=== PATIENT | female | born 1955 | race Caucasian/White ===

== ENCOUNTER → 2016-11-22 | Outpatient (CLI) | payer BC ==
[~2016-11-22] MED LIST: ASP325TEC PO; SIMV20TA3 PO; SITA100T PO; tylenol pm PO
--- NOTE | 2016-11-23 10:59 | Diagnostic Imaging Report ---
EXAMINATION: Bilateral screening mammogram 2D views with tomosynthesis. The current study was also evaluated with a Computer Aided Detection (CAD) system. INDICATION: Screening. PERSONAL HISTORY: No current complaints stated on the questionnaire. COMPARISON: 09/24/2015. FINDINGS: The breasts are composed of scattered fibroglandular densities. Allowing for technique and positional differences, no suspicious change is seen. IMPRESSION: No significant change. ACR BI-RADS Category 2: Benign findings. Result letter will be mailed to the patient. Note: At least 10% of breast cancer is not imaged by mammography. Dictated by: Dictated on workstation # [id number]
== END ==
LOC: RAD 09:59
PROVIDERS: ATTEND Nurse Practitioner Family
DX: Z12.31 Encounter for screening mammogram for malignant neoplasm of breast (principal)
CPT/HCPCS: 77067

== ENCOUNTER → 2018-03-28 | Outpatient (CLI) | payer BC ==
--- NOTE | 2018-03-28 15:50 | Diagnostic Imaging Report ---
INDICATION: Routine screening. COMPARISON: 11/22/2016 and 10/21/2015. TECHNIQUE: 2D and 3D bilateral screening mammography was performed with CAD. FINDINGS: Scattered fibroglandular densities are identified bilaterally. The parenchymal pattern is stable. No mass or malignant appearing microcalcifications are seen. The axillae are unremarkable. IMPRESSION: No mammographic features suspicious for malignancy are identified. ACR BI-RADS Category 1: Negative. Result letter will be mailed to the patient. Note: At least 10% of breast cancer is not imaged by mammography. Dictated by: Dictated on workstation # [id number]
== END ==
LOC: RAD 09:45
PROVIDERS: ATTEND Nurse Practitioner Family
DX: Z12.31 Encounter for screening mammogram for malignant neoplasm of breast (principal)
CPT/HCPCS: 77067

== ENCOUNTER → 2018-06-26 | Outpatient (CLI) | payer BC | LOC: CARD 09:44 | PROVIDERS: ATTEND Internal Medicine Cardiovascular Disease | DX: R07.89 Other chest pain (principal); I10 Essential (primary) hypertension; E78.5 Hyperlipidemia, unspecified; R06.02 Shortness of breath | CPT/HCPCS: 93306 ==

== ENCOUNTER 2018-08-07 23:59 | Observation (INO) | payer BC, MEDICARE ==
[~2018-08-07] VITALS: Ht 170.2 cm; Wt 79.8 kg
[2018-08-08] VITALS (20 sets, daily range): BP systolic 90–147; BP diastolic 51–69
[2018-08-08] MEDS ORDERED: ASPIRIN 81 MG CHEW (CHILDREN'S ASA) PO ONE (00:15)
[2018-08-08] MEDS ORDERED: ONDANSETRON 4 MG/2 ML (SDV) Z0FRAN ONE ×2 (00:25→11:53)
[2018-08-08] MEDS ORDERED: ONDANSETRON 4 MG/2 ML (SDV) Z0FRAN IVP ONE ×2 (00:30→01:30)
[2018-08-08 00:33] LABS: BASOPHILS % (AUTO) 0 % (0-10); EOSINOPHILS # (AUTO) 0.3 10^3/uL (0.0-0.3); EOSINOPHILS % (AUTO) 2 % (0-10); HEMATOCRIT 42 % (35-52); HEMOGLOBIN 13.7 G/DL (11.5-16.0); LYMPHOCYTES # (AUTO) 3.9 X 10^3 (1.0-4.0); LYMPHOCYTES % (AUTO) 28 % (12-44); MEAN CORPUSCULAR HEMOGLOBIN 27 PG (25-34); MEAN CORPUSCULAR HGB CONC 33 G/DL (32-36); MEAN CORPUSCULAR VOLUME 82 FL (80-99); MEAN PLATELET VOLUME 9.8 FL (7.4-10.4); MONOCYTES % (AUTO) 8 % (0-12); NEUTROPHILS # (AUTO) 8.5 X 10^3 (1.8-7.8); NEUTROPHILS % (AUTO) 62 % (42-75); PLATELET COUNT 325 10^3/uL (130-400); RED CELL DISTRIBUTION WIDTH 15.2 % (10.0-14.5); WHITE BLOOD COUNT 13.7 10^3/uL (4.3-11.0)
[2018-08-08] MEDS: NITROGLYCERIN 0.4 MG SL TABS BTL 25'S SL PRN ×3 (00:35→00:42)
--- NOTE | 2018-08-08 00:35 | ED Chest Pain ---
General Stated Complaint: SHOULDER,BACK & PAIN ALL THE WAY AROUND CHEST Source: patient History of Present Illness Date Seen by Provider: Aug 08, 2018 Time Seen by Provider: 00:06 Initial Comments PT ARRIVES VIA POV FROM HOME C/O PAIN ALL ACROSS LOWER CHEST/ RIBS AND AROUND TO BACK PAIN BEGAN AROUND 1700 TONIGHT RATES PAIN 7-8/10 NOTHING WORSENS OR IMPROVES PAIN NO SHORTNESS OF BREATH NO PALPITATIONS NO SWEATS + NAUSEA, NO VOMITING NO SWELLING IN LEGS / FEET OR PAIN IN CALVES PT DID TRAVEL [address] TODAY IN A VEHICLE HAS HAD THIS SAME PAIN MANY TIMES IN THE PAST, NEVER THIS BAD HAS HAD STRESS TESTS IN THE PAST, LAST ONE IN 2016--NORMAL PT SEES DR LEVINE ON A REGULAR BASIS FOR HTN AND HYPERLIPIDEMIA, WITH HISTORY OF DIABETES WELL. STATES SHE HAS NEVER BEEN TOLD THAT SHE HAS ANYTHING WRONG WITH HER HEART. LAST VISIT WAS 1 WEEK AGO NO CHANGES IN MEDICATIONS PCP: DR. BANDA PICKUP DRIVER: DR. LEVINE Allergies and Home Medications Allergies Coded Allergies: No Known Drug Allergies (Unverified , 08/03/11) Home Medications Aspirin 325 Mg Tabec, 325 MG PO DAILY, (Reported) Simvastatin 20 Mg Tablet, 20 MG PO DAILY, (Reported) Sitagliptin Phosphate 100 Mg Tablet, 1 EACH PO DAILY, (Reported) [tylenol pm] , PO HS, (Reported) Patient Home Medication List Home Medication List Reviewed: Yes Review of Systems Review of Systems Constitutional: no symptoms reported; No diaphoresis, No dizziness Respiratory: No Symptoms Reported Cardiovascular: See HPI, Chest Pain; Denies Edema, Denies Lightheadedness, Denies Palpitations, Denies Syncope Gastrointestinal: See HPI; Denies Abdominal Pain; Nausea; Denies Vomiting Genitourinary: No Symptoms Reported Musculoskeletal: see HPI, back pain Skin: no symptoms reported Psychiatric/Neurological: No Symptoms Reported Endocrine: No Symptoms Reported Hematologic/Lymphatic: No Symptoms Reported Past Wobfklm-Knbkke-Dwsaez Hx Patient Social History Alcohol Use: Rarely Uses Recreational Drug Use: No Smoking Status: Never a Smoker Recent Foreign Travel: No Contact w/Someone Who Travel: No Past Medical History Surgeries: Yes (LEFT HIP REPLACEMENT; COLONOSCOPY) Joint Replacement, Orthopedic, Tubal Ligation Respiratory: No Cardiac: Yes High Cholesterol, Hypertension Neurological: No Genitourinary: No Gastrointestinal: No Musculoskeletal: Yes Arthritis Endocrine: Yes Diabetes, Non-Insulin dep HEENT: No Cancer: No Psychosocial: No Integumentary: No Blood Disorders: No Physical Exam Vital Signs Vital Signs - First Documented Capillary Refill : Height, Weight, BMI Height: '" Weight: lbs. oz. kg; BMI Method: General Appearance: No Apparent Distress, WD/WN Neck: Full Range of Motion, Normal Inspection, Non Tender, Supple; No Carotid Bruit, No JVD Respiratory: Chest Non Tender, Normal Breath Sounds, No Accessory Muscle Use, No Respiratory Distress Cardiovascular: Regular Rate, Rhythm, No Edema, No JVD, No Murmur, Normal Peripheral Pulses Gastrointestinal: Normal Bowel Sounds, No Organomegaly, No Pulsatile Mass, Non Tender, Soft Extremity: Normal Capillary Refill, Normal Inspection, Normal Range of Motion, Non Tender, No Calf Tenderness, No Pedal Edema Neurologic/Psychiatric: Alert, Oriented x3, No Motor/Sensory Deficits, Normal Mood/Affect, air intelligence specialist II-XII Norm as Tested Skin: Normal Color, Warm/Dry; No Rash Progress/Results/Core Measures Results/Orders Lab Results Laboratory Tests Test 08/08/18 00:20 Range/Units White Blood Count 13.7 H 4.3-11.0 10^3/uL Red Blood Count 5.17 4.35-5.85 10^6/uL Hemoglobin 13.7 11.5-16.0 G/DL Hematocrit 42 35-52 % Mean Corpuscular Volume 82 80-99 FL Mean Corpuscular Hemoglobin 27 25-34 PG Mean Corpuscular Hemoglobin Concent 33 32-36 G/DL Red Cell Distribution Width 15.2 H 10.0-14.5 % Platelet Count 325 130-400 10^3/uL Mean Platelet Volume 9.8 7.4-10.4 FL Neutrophils (%) (Auto) 62 42-75 % Lymphocytes (%) (Auto) 28 12-44 % Monocytes (%) (Auto) 8 0-12 % Eosinophils (%) (Auto) 2 0-10 % Basophils (%) (Auto) 0 0-10 % Neutrophils # (Auto) 8.5 H 1.8-7.8 X 10^3 Lymphocytes # (Auto) 3.9 1.0-4.0 X 10^3 Monocytes # (Auto) 1.0 0.0-1.0 X 10^3 Eosinophils # (Auto) 0.3 0.0-0.3 10^3/uL Basophils # (Auto) 0.0 0.0-0.1 10^3/uL Prothrombin Time 13.0 12.2-14.7 SEC INR Comment 0.9 0.8-1.4 Activated Partial Thromboplast Time 32 24-35 SEC Sodium Level 143 135-145 MMOL/L Potassium Level 3.9 3.6-5.0 MMOL/L Chloride Level 104 98-107 MMOL/L Carbon Dioxide Level 24 21-32 MMOL/L Anion Gap 15 H 5-14 MMOL/L Blood Urea Nitrogen 19 H 7-18 MG/DL Creatinine 0.88 0.60-1.30 MG/DL Estimat Glomerular Filtration Rate > 60 BUN/Creatinine Ratio 22 Glucose Level 138 H 70-105 MG/DL Calcium Level 10.5 H 8.5-10.1 MG/DL Corrected Calcium 8.5-10.1 MG/DL Magnesium Level 2.2 1.8-2.4 MG/DL Total Bilirubin 0.4 0.1-1.0 MG/DL Aspartate Amino Transf (AST/SGOT) 23 5-34 U/L Alanine Aminotransferase (ALT/SGPT) 39 0-55 U/L Alkaline Phosphatase 78 40-136 U/L Myoglobin 33.3 10.0-92.0 NG/ML Troponin I < 0.028 <0.028 NG/ML B-Type Natriuretic Peptide 20.1 <100.0 PG/ML Total Protein 7.8 6.4-8.2 GM/DL Albumin 4.6 H 3.2-4.5 GM/DL Amylase Level 68 25-125 U/L Lipase 36 8-78 U/L My Orders Orders - JIAN KAHN DO Cbc With Automated Diff (08/08/18 00:15) Magnesium (08/08/18 00:15) Chest 1 View, Ap/Pa Only (08/08/18 00:15) Ekg Tracing (08/08/18 00:15) Cardiac Profile 1 (08/08/18 00:15) Comprehensive Metabolic Panel (08/08/18 00:15) Myoglobin Serum (08/08/18 00:15) Protime With Inr (08/08/18 00:15) Partial Thromboplastin Time (08/08/18 00:15) O2 (08/08/18 00:15) Monitor-Rhythm Ecg Trace Only (08/08/18 00:15) Lipid Panel (08/09/18 06:00) Ed Iv/Invasive Line Start (08/08/18 00:15) Lipase (08/08/18 00:15) Amylase (08/08/18 00:15) BNP (08/08/18 00:15) Nitroglycerin 0.4 Mg Btl 25's (Nitrostat (08/08/18 00:15) Aspirin Chewable Tablet (Baby Aspirin Ch (08/08/18 00:15) Ondansetron Injection (Zofran Injectio (08/08/18 00:30) Ondansetron Injection (Zofran Injectio (08/08/18 00:25) Nitroglycerin Ointment (Nitrobid Ointme (08/08/18 01:00) Morphine Injection (Morphine Injection (08/08/18 00:51) Ondansetron Injection (Zofran Injectio (08/08/18 01:30) Morphine Injection (Morphine Injection (08/08/18 01:17) Pantoprazole Injection (Protonix Injecti (08/08/18 01:30) Medications Given in ED Current Medications Medications Dose Ordered Sig/Andrey Route Start Time Stop Time Status Last Admin Dose Admin Aspirin 324 mg ONCE ONCE PO 08/08/18 00:15 08/08/18 00:18 DC 08/08/18 00:34 324 MG Nitroglycerin 0.4 mg UD PRN SL 08/08/18 00:15 08/08/18 00:42 0.4 MG Nitroglycerin 1 inch ONCE ONCE TOP 08/08/18 01:00 08/08/18 01:01 DC 08/08/18 00:59 1 INCH Ondansetron HCl 4 mg ONCE ONCE IVP 08/08/18 00:30 08/08/18 00:31 DC 08/08/18 00:34 4 MG Vital Signs/I&O 08/08/18 08/08/18 00:07 00:07 Temp 98.1 Pulse 90 Resp 18 B/P (MAP) 180/84 (116) O2 Delivery Room Air Room Air Progress Progress Note : Progress Note PAIN DOWN TO 1/10 WITH NITROGLYCERINE AND MORPHINE NAUSEA IMPROVED WITH ZOFRAN BP DOWN WITH MEDICATIONS NO DETERIORATION IN PT'S CONDITION DURING ER STAY Initial ECG Impression Date: Aug 08, 2018 Initial ECG Impression Time: 00:12 Initial ECG Rate: 71 Initial ECG Rhythm: Normal Sinus Initial ECG Impression: Normal Initial ECG Comparisson: No Previous ECG Available Diagnostic Imaging Comments CXR--NO ACUTE PROCESS, PENDING RADIOLOGIST REVIEW Reviewed: Reviewed by Me Departure Communication (Admissions) 0112--SPOKE WITH DR. BANDA, ACCEPTS PT FOR ADMIT Impression Primary Impression: Chest pain Additional Impressions: HTN (hypertension) NIDDM Disposition: ADMITTED INPATIENT Condition: Improved Admissions Decision to Admit Reason: Admit from ER (General) Decision to Admit/Date: Aug 08, 2018 Time/Decision to Admit Time: 01:15 Departure-Patient Inst. Referrals: EBONI BANDA MD (PCP/Family) Primary Care Physician JIAN KAHN DO Aug 08, 2018 00:35
[2018-08-08 00:43] LABS: INR 0.9 (0.8-1.4)
[2018-08-08] MEDS ORDERED: morphine INJ 10 MG/ML 1ML (SYR OR VIAL) IVP STA ×2 (00:51→01:17)
[2018-08-08 00:53] LABS: ALANINE AMINOTRANSFERASE 39 U/L (0-55); ALBUMIN 4.6 GM/DL (3.2-4.5); ALKALINE PHOSPHATASE 78 U/L (40-136); AMYLASE 68 U/L (25-125); BILIRUBIN,TOTAL 0.4 MG/DL (0.1-1.0); BUN/CREATININE RATIO 22; CALCIUM 10.5 MG/DL (8.5-10.1); CARBON DIOXIDE 24 MMOL/L (21-32); CHLORIDE 104 MMOL/L (98-107); CREATININE SERUM 0.88 MG/DL (0.60-1.30); GFR ESTIMATED > 60; GLUCOSE 138 MG/DL (70-105); LIPASE 36 U/L (8-78); MAGNESIUM 2.2 MG/DL (1.8-2.4); POTASSIUM 3.9 MMOL/L (3.6-5.0); SODIUM 143 MMOL/L (135-145); TOTAL PROTEIN 7.8 GM/DL (6.4-8.2)
[2018-08-08] MEDS ORDERED: NITROGLYCERIN 2% OINT 1 GM UNIT DOSE PACKET TOP ONE (01:00)
[2018-08-08] MEDS ORDERED: PANTOPRAZOLE 40 MG (PROTONIX) VIAL IV ONE (01:30)
[2018-08-08] MEDS ORDERED: NS IV 1000 ML 1,000 ML IV ONE (01:40)
[2018-08-08] MEDS ORDERED: PATIENT MAY USE OWN MEDS, ALL PO SCH (03:00)
[2018-08-08] MEDS ORDERED: morphine INJ 4 MG/ML 1 ML (VIAL/SYRINGE) IV PRN (04:30)
[2018-08-08] MEDS ORDERED: ONDANSETRON 4 MG/2 ML (SDV) Z0FRAN IV PRN (04:30)
[2018-08-08] MEDS ORDERED: inSUlin ASPART (NovoLOG) 1 UNIT/0.01 ML (CHARGE PER UNIT) SC SCH ×2 (06:00→12:00)
[2018-08-08 06:18] LABS: BASOPHILS % (AUTO) 0 % (0-10); EOSINOPHILS % (AUTO) 0 % (0-10); HEMATOCRIT 40 % (35-52); LYMPHOCYTES # (AUTO) 1.8 X 10^3 (1.0-4.0); LYMPHOCYTES % (AUTO) 11 % (12-44); MEAN CORPUSCULAR HEMOGLOBIN 27 PG (25-34); MEAN CORPUSCULAR HGB CONC 33 G/DL (32-36); MEAN CORPUSCULAR VOLUME 82 FL (80-99); MEAN PLATELET VOLUME 9.7 FL (7.4-10.4); MONOCYTES # (AUTO) 1.1 X 10^3 (0.0-1.0); MONOCYTES % (AUTO) 7 % (0-12); NEUTROPHILS # (AUTO) 12.9 X 10^3 (1.8-7.8); NEUTROPHILS % (AUTO) 82 % (42-75); PLATELET COUNT 306 10^3/uL (130-400); RED CELL DISTRIBUTION WIDTH 15.1 % (10.0-14.5); WHITE BLOOD COUNT 15.8 10^3/uL (4.3-11.0)
[2018-08-08 06:39] LABS: ALANINE AMINOTRANSFERASE 41 U/L (0-55); ALKALINE PHOSPHATASE 69 U/L (40-136); BILIRUBIN,TOTAL 0.5 MG/DL (0.1-1.0); BUN/CREATININE RATIO 21; CALCIUM 9.4 MG/DL (8.5-10.1); CARBON DIOXIDE 23 MMOL/L (21-32); CHLORIDE 106 MMOL/L (98-107); CHOLESTEROL 135 MG/DL (< 200); GFR ESTIMATED > 60; GLUCOSE 173 MG/DL (70-105); HDL CHOLESTEROL 48 MG/DL (40-60); POTASSIUM 4.4 MMOL/L (3.6-5.0); SODIUM 140 MMOL/L (135-145); TOTAL PROTEIN 6.7 GM/DL (6.4-8.2); TRIGLYCERIDES 53 MG/DL (<150); VLDL CHOLESTEROL 11 MG/DL (5-40)
--- NOTE | 2018-08-08 06:39 | Diagnostic Imaging Report ---
CHEST 1 VIEW, AP/PA ONLY Indication: Chest pain Comparison: None available. Findings: No focal airspace disease in the visualized lungs. Please note that the posterior lower lobes are poorly evaluated by portable radiography. No pleural effusion or pneumothorax. Normal cardiomediastinal silhouette. Impression: No acute cardiopulmonary process by portable radiography. Dictated by: Dictated on workstation # [id number]
[2018-08-08] MEDS: NITROGLYCERIN 2% OINT 1 GM UNIT DOSE PACKET TOP SCH ×2 (07:23→12:00)
--- NOTE | 2018-08-08 08:01 | Consultation-Cardiology ---
HPI-Cardiology Cardiology Consultation Date of Consultation 08/08/18 Date of Admission Time Seen by Provider: 07:57 Indication: Chest pain/abdominal pain HPI 63 years old lady with history of hypertension, hyperlipidemia and diabetes mellitus, was in her usual state of health, started to have epigastric pain and right upper quadrant pain radiating to the right side and back, has been having pain on and off for a while. Denied any palpitation, no shortness of breath. No syncope or near syncopal episodes. No claudications. Home Medications & Allergies Allergies: Coded Allergies: No Known Drug Allergies (Unverified , 08/03/11) Home Medication List Reviewed: Yes ILJ-Pqtxdo-Sapvzm Hx Patient Social History Marital Status: Employed/Student: employed Alcohol Use: Rarely Uses Recreational Drug Use: No Smoking Status: Never a Smoker Recent Foreign Travel: No Recent Infectious Disease Expo: No Recent Hopitalizations: No Past Medical History discussed below Family Medical History Family Medical Hx strong family history of heart disease Review of Systems-General Review of Systems Constitutional: no symptoms reported, see HPI; No diaphoresis, No dizziness EENTM: see HPI, no symptoms reported Respiratory: see HPI; No cough, No dyspnea on exertion, No hemoptysis, No orthopnea, No phlegm, No short of breath, No stridor, No wheezing, No other Cardiovascular: see HPI; No chest pain, No edema, No Hx of Intervention, No palpitations, No syncope, No vascular heart diseas, No other Gastrointestinal: RUQ Genitourinary: no symptoms reported, see HPI Musculoskeletal: see HPI, back pain Skin: no symptoms reported Psychiatric/Neurological: No Symptoms Reported Reviewed Test Results Reviewed Test Results Lab Laboratory Tests Test 08/08/18 00:20 08/08/18 06:07 Range/Units White Blood Count 13.7 H 15.8 H 4.3-11.0 10^3/uL Red Blood Count 5.17 4.82 4.35-5.85 10^6/uL Hemoglobin 13.7 13.0 11.5-16.0 G/DL Hematocrit 42 40 35-52 % Mean Corpuscular Volume 82 82 80-99 FL Mean Corpuscular Hemoglobin 27 27 25-34 PG Mean Corpuscular Hemoglobin Concent 33 33 32-36 G/DL Red Cell Distribution Width 15.2 H 15.1 H 10.0-14.5 % Platelet Count 325 306 130-400 10^3/uL Mean Platelet Volume 9.8 9.7 7.4-10.4 FL Neutrophils (%) (Auto) 62 82 H 42-75 % Lymphocytes (%) (Auto) 28 11 L 12-44 % Monocytes (%) (Auto) 8 7 0-12 % Eosinophils (%) (Auto) 2 0 0-10 % Basophils (%) (Auto) 0 0 0-10 % Neutrophils # (Auto) 8.5 H 12.9 H 1.8-7.8 X 10^3 Lymphocytes # (Auto) 3.9 1.8 1.0-4.0 X 10^3 Monocytes # (Auto) 1.0 1.1 H 0.0-1.0 X 10^3 Eosinophils # (Auto) 0.3 0.0 0.0-0.3 10^3/uL Basophils # (Auto) 0.0 0.0 0.0-0.1 10^3/uL Prothrombin Time 13.0 12.2-14.7 SEC INR Comment 0.9 0.8-1.4 Activated Partial Thromboplast Time 32 24-35 SEC Sodium Level 143 140 135-145 MMOL/L Potassium Level 3.9 4.4 3.6-5.0 MMOL/L Chloride Level 104 106 98-107 MMOL/L Carbon Dioxide Level 24 23 21-32 MMOL/L Anion Gap 15 H 11 5-14 MMOL/L Blood Urea Nitrogen 19 H 17 7-18 MG/DL Creatinine 0.88 0.80 0.60-1.30 MG/DL Estimat Glomerular Filtration Rate > 60 > 60 BUN/Creatinine Ratio 22 21 Glucose Level 138 H 173 H 70-105 MG/DL Calcium Level 10.5 H 9.4 8.5-10.1 MG/DL Corrected Calcium 9.4 8.5-10.1 MG/DL Magnesium Level 2.2 1.8-2.4 MG/DL Total Bilirubin 0.4 0.5 0.1-1.0 MG/DL Aspartate Amino Transf (AST/SGOT) 23 26 5-34 U/L Alanine Aminotransferase (ALT/SGPT) 39 41 0-55 U/L Alkaline Phosphatase 78 69 40-136 U/L Myoglobin 33.3 10.0-92.0 NG/ML Troponin I < 0.028 < 0.028 <0.028 NG/ML B-Type Natriuretic Peptide 20.1 <100.0 PG/ML Total Protein 7.8 6.7 6.4-8.2 GM/DL Albumin 4.6 H 4.0 3.2-4.5 GM/DL Amylase Level 68 25-125 U/L Lipase 36 8-78 U/L Triglycerides Level 53 <150 MG/DL Cholesterol Level 135 < 200 MG/DL LDL Cholesterol Direct 76 1-129 MG/DL VLDL Cholesterol 11 5-40 MG/DL HDL Cholesterol 48 40-60 MG/DL Physical Exam Physical Exam Vital Signs Vital Signs - First Documented 08/08/18 02:30 Pulse Ox 96 Capillary Refill : Less Than 3 Seconds Height, Weight, BMI Height: 5'7.00" Weight: 176lbs. 0.0oz. [id number]; 27.6 BMI Method:Stated General Appearance: No Apparent Distress, WD/WN Eyes: Bilateral Eye Normal Inspection, Bilateral Eye PERRL, Bilateral Eye EOMI HEENT: PERRL/EOMI, TMs Normal, Normal ENT Inspection, Pharynx Normal, Moist Mucous Membranes Neck: Full Range of Motion, Normal Inspection, Non Tender, Supple; No Carotid Bruit, No JVD Respiratory: Chest Non Tender, Normal Breath Sounds, No Accessory Muscle Use, No Respiratory Distress Cardiovascular: Regular Rate, Rhythm, No Edema, No JVD, No Murmur, Normal Nikky pheral Pulses Gastrointestinal: Normal Bowel Sounds, No Organomegaly, No Pulsatile Mass, Soft, Tenderness (right upper quadrant) Back: Normal Inspection, No CVA Tenderness, No Vertebral Tenderness Extremity: Normal Capillary Refill, Normal Inspection, Normal Range of Motion, Non Tender, No Calf Tenderness, No Pedal Edema Neurologic/Psychiatric: Alert, Oriented x3, No Motor/Sensory Deficits, Normal Mood/Affect, senior sas programmer II-XII Norm as Tested Skin: Normal Color, Warm/Dry; No Rash Lymphatic: No Adenopathy A/P-Cardiology Admission Diagnosis Acute cholecystitis Hypertension Hyperlipidemia Diabetes mellitus Assessment/Plan Abdominal pain, right upper quadrant pain suggestive of cholecystitis, recommend surgical consult History of chest pain, currently better. No active pain. No EKG abnormality Hypertension, restart home medication monitor blood pressure Hyperlipidemia, monitor lipids Diabetes mellitus, followed and managed by primary care physician Strong family history of heart disease Clinical Quality Measures AMI/AHF: ASA po Prior to arrival: Yes (TOOK 2 CHEWABLE AT HOME) DVT/VTE Risk/Contraindication: Risk Factor Score Per Nursin RFS Level Per Nursing on Admit: 3=High BOB LEVINE MD Aug 08, 2018 08:01
--- NOTE | 2018-08-08 08:40 | History & Physicial ---
History of Present Illness History of Present Illness Reason for visit/HPI PT REPORTS THAT SHE HAS HAD INTERMITTENT ABDOMINAL PAIN FOR SEVERAL MONTHS. SHE REPORTS THAT LAST NIGHT SHE HAD PART OF A CHEESEBURGER AND FRIES AND SHE HAD ABDOMINAL PAIN THAT INCREASED IN INTENSITY TO THE POINT THAT SHE WAS SO UNCOMFORTABLE THAT SHE DECIDED TO PRESENT TO THE HOSPITAL FOR FURTHER WORK UP - SHE WAS CONCERNED ABOUT CARDIAC INVOLVEMENT DUE TO HER FAMILY HX OF CAD. Date of Admission Aug 08, 2018 at 01:20 Date Seen by a Provider: Aug 08, 2018 Time Seen by a Provider: 08:30 I consulted on this patient on 08/08/18 08:30 Attending Physician Eboni Arteaga MD Admitting Physician Eboni Arteaga MD Consult DR. LEVINE - CARDIOLOGY DR. JEAN BAPTISTE - SURGERY Allergies and Home Medications Allergies Coded Allergies: No Known Drug Allergies (Unverified , 08/03/11) Home Medications Aspirin 325 Mg Tabec, 325 MG PO DAILY, (Reported) Simvastatin 20 Mg Tablet, 20 MG PO DAILY, (Reported) Sitagliptin Phosphate 100 Mg Tablet, 1 EACH PO DAILY, (Reported) [tylenol pm] , PO HS, (Reported) Patient Home Medication List Home Medication List Reviewed: Yes Past Whacwpe-Tlaenz-Fthbjt Hx Patient Social History Marrital Status: Living Status: LIVES WITH SPOUSE Employed/Student: employed Alcohol Use: Rarely Uses Recreational Drug Use: No Smoking Status: Never a Smoker 2nd Hand Smoke Exposure: No Physical Abuse Screen: No Sexual Abuse: No Recent Foreign Travel: No Contact w/other who traveled: No Recent Hopitalizations: No Recent Infectious Disease Expo: No Seasonal Allergies Seasonal Allergies: No Surgeries Yes (LEFT HIP REPLACEMENT; COLONOSCOPY) Joint Replacement, Orthopedic, Tubal Ligation Respiratory No Currently Using CPAP: No Currently Using BIPAP: No Cardiovascular Yes High Cholesterol, Hypertension Neurological No Reproductive System : No STAFFING SPECIALIST History: Tubal Ligation Genitourinary No Gastrointestinal No Musculoskeletal Yes Arthritis Endocrine History of Endocrine Disorders: Yes Endocrine Disorders: Diabetes, Non-Insulin dep HEENT History of HEENT Disorders: No Loss of Vision: Denies Hearing Impairment: Denies Cancer No Psychosocial History of Psychiatric Problem: No Integumentary History of Skin or Integumenta: No Blood Transfusions History of Blood Disorders: No Reviewed Nursing Assessment Reviewed/Agree w Nursing PMH: Yes Family Medical History Significant Family History: Heart Disease (MOM), Hypertension Review of Systems Constitutional: No chills, No fever, No malaise, No weakness EENTM: No hoarseness, No throat pain Respiratory: No cough, No dyspnea on exertion, No short of breath Cardiovascular: No chest pain, No palpitations Gastrointestinal: abdominal pain (RUQ); No jaundice, No loss of appetite, No nausea, No vomiting Genitourinary: no symptoms reported Musculoskeletal: no symptoms reported Skin: no symptoms reported Psychiatric/Neurological: Denies Anxiety, Denies Depressed, Denies Weakness All Other Systems Reviewed Negative Unless Noted: Yes Physical Exam Vital Signs Vital Signs - First Documented 08/08/18 02:30 Pulse Ox 96 Capillary Refill : Less Than 3 Seconds Height, Weight, BMI Height: 5'7.00" Weight: 176lbs. 0.0oz. 79.563727xk; 27.6 BMI Method:Stated General Appearance: No Apparent Distress, WD/WN Eyes: Bilateral Eye Normal Inspection, Bilateral Eye PERRL, Bilateral Eye EOMI HEENT: PERRL/EOMI, Pharynx Normal Neck: Full Range of Motion, Non Tender, Supple Respiratory: Chest Non Tender, Lungs Clear, Normal Breath Sounds, No Accessory Muscle Use, No Respiratory Distress Cardiovascular: Regular Rate, Rhythm, No Murmur Gastrointestinal: Normal Bowel Sounds, Soft, Tenderness (RUQ + TTP AND EPIGASTRIC TTP) Rectal: Deferred Back: Normal Inspection, No Vertebral Tenderness Extremity: Normal Capillary Refill, Normal Inspection, Normal Range of Motion, Non Tender, No Calf Tenderness, No Pedal Edema Neurologic/Psychiatric: Alert, Oriented x3, No Motor/Sensory Deficits, Normal Mood/Affect, student nurse II-XII Norm as Tested Skin: Normal Color, Warm/Dry Lymphatic: No Adenopathy Assessment/Plan Assessment and Plan EPIGASTRIC ABDOMINAL PAIN CHOLELITHIASIS CHOLECYSTITIS HYPERLIPIDEMIA DIABETES MELLITUS EPIGASTRIC ABDOMINAL PAIN DUE TO CHOLELITHIASIS AND CHOLECYSTITIS - PHONE CALL HAS BEEN PLACED TO DR. JEAN BAPTISTE FOR SURGICAL INTERVENTION FOR REMOVAL OF THE GALLBLADDER AND STONE IMPACTION. IMPRESSION: 1. Cholelithiasis with a gallstone lodged in the gallbladder neck. The presence of pericholecystic fluid raises the possibility of acute cholecystitis. 2. Diffuse hepatic steatosis. HYPERLIPIDEMIA - HOLD MEDICATION AT THIS TIME. DIABETES MELLITUS - HOLD MEDICATION AT THIS TIME. Admission Diagnosis EPIGASTRIC ABDOMINAL PAIN CHOLELITHIASIS CHOLECYSTITIS HYPERLIPIDEMIA DIABETES MELLITUS Admission Status: Observation Clinical Quality Measures AMI/AHF: ASA po Prior to arrival: Yes (TOOK 2 CHEWABLE AT HOME) DVT/VTE Risk/Contraindication: Risk Factor Score Per Nursin RFS Level Per Nursing on Admit: 3=High EBONI ARTEAGA MD Aug 08, 2018 08:40
[2018-08-08] MEDS ORDERED: ASPIRIN E.C. 81 MG (ECOTRIN) TAB PO SCH (09:00)
[2018-08-08] MEDS ORDERED: PANTOPRAZOLE 40 MG (PROTONIX) VIAL IV SCH (09:00)
--- NOTE | 2018-08-08 09:15 | Diagnostic Imaging Report ---
PROCEDURE: US abdomen complete. TECHNIQUE: Multiple Real-time grayscale images were obtained over the abdomen in various projections. INDICATION: Abdominal pain. COMPARISON: None available. FINDINGS: The liver has diffuse increased echogenicity, indicative of hepatic steatosis. The liver measures approximately 18 cm in craniocaudal dimension. There are multiple cysts throughout the liver with the largest in the right hepatic lobe measuring 3.2 x 2.4 cm. The main portal vein is patent with normal direction of flow. There is a 1.7 cm shadowing echogenic stone at the level of the gallbladder neck. Pericholecystic fluid is present along with mild gallbladder wall thickening. The common bile duct measures up to 0.7 cm in diameter. No intrahepatic biliary dilation. The visualized portions of the pancreas are normal. Portions of the head and tail are obscured by overlying bowel gas. The kidneys are normal in size. No hydronephrosis, shadowing calculi, or suspicious mass lesion. The spleen is normal in size and without focal lesion. The aorta and IVC are normal in caliber where seen. IMPRESSION: 1. Cholelithiasis with a gallstone lodged in the gallbladder neck. The presence of pericholecystic fluid raises the possibility of acute cholecystitis. 2. Diffuse hepatic steatosis. Dictated by: Dictated on workstation # [id number]
[2018-08-08] MEDS ORDERED: LIDOCAINE 1% INJ 20 ML 20 ML VIAL ONE (10:07)
[2018-08-08] MEDS ORDERED: BUP/EPI 0.5% 1:200,000 (SENSORCAINE) 30 ML VIAL ONE (10:07)
[2018-08-08] MEDS ORDERED: IOPAMIDOL 61% 30 ML (ISOVUE 300) VIAL IV ONE (10:07)
[2018-08-08] MEDS ORDERED: MIDAZOLAM 2 MG/2 ML (VERSED) VIAL ONE (10:13)
[2018-08-08] MEDS ORDERED: fentaNYL INJECTION 100 MCG/2 ML AMP ONE (10:13)
--- NOTE | 2018-08-08 10:22 | Consultation (Surgery) ---
History of Present Illness History of Present Illness Patient Consulted On(lula/time) 08/08/18 10:17 Time Seen by Provider: 09:31 Reason for Visit: Chest pain/abdominal pain History of Present Illness Surgery asked to consult regarding Cholecystitis HPI per IM: PT REPORTS THAT SHE HAS HAD INTERMITTENT ABDOMINAL PAIN FOR SEVERAL MONTHS. SHE REPORTS THAT LAST NIGHT SHE HAD PART OF A CHEESEBURGER AND FRIES AND SHE HAD ABDOMINAL PAIN THAT INCREASED IN INTENSITY TO THE POINT THAT SHE WAS SO UNCOMFORTABLE THAT SHE DECIDED TO PRESENT TO THE HOSPITAL FOR FURTHER WORK UP - SHE WAS CONCERNED ABOUT CARDIAC INVOLVEMENT DUE TO HER FAMILY HX OF CAD. When I spoke to pt she stated the pain began last night after eating a [employer] hamburger. She became nauseous with a dull pain under her ribs, denies that it radiated to her back. Pt states the pain increased and she thought she was having a heart attack. She denies emesis. She states looking back she thinks she has had this pain off and on for a while. Allergies and Home Medications Allergies Coded Allergies: No Known Drug Allergies (Unverified , 08/03/11) Home Medications Aspirin 325 Mg Tabec, 325 MG PO DAILY, (Reported) Simvastatin 20 Mg Tablet, 20 MG PO DAILY, (Reported) Sitagliptin Phosphate 100 Mg Tablet, 1 EACH PO DAILY, (Reported) [tylenol pm] , PO HS, (Reported) Patient Home Medication List Home Medication List Reviewed: Yes Past Gtrgazy-Qmcfvi-Jevsly Hx Patient Social History Alcohol Use: Rarely Uses Recreational Drug Use: No Smoking Status: Never a Smoker 2nd Hand Smoke Exposure: No Recent Foreign Travel: No Contact w/Someone Who Travel: No Recent Infectious Disease Expo: No Recent Hopitalizations: No Physical Abuse Screen: No Sexual Abuse: No Seasonal Allergies Seasonal Allergies: No Surgeries History of Surgeries: Yes (LEFT HIP REPLACEMENT; COLONOSCOPY) Surgeries: Joint Replacement, Orthopedic, Tubal Ligation Respiratory History of Respiratory Disorde: No Cardiovascular History of Cardiac Disorders: Yes Cardiac Disorders: High Cholesterol, Hypertension Neurological History of Neurological Disord: No Reproductive System : No WINE CONSULTANT History: Tubal Ligation Genitourinary History of Genitourinary Disor: No Gastrointestinal History of Gastrointestinal Di: No Musculoskeletal History of Musculoskeletal Dis: Yes Musculoskeletal Disorders: Arthritis Endocrine History of Endocrine Disorders: Yes Endocrine Disorders: Diabetes, Non-Insulin dep HEENT History of HEENT Disorders: No Loss of Vision: Denies Hearing Impairment: Denies Cancer History of Cancer: No Psychosocial History of Psychiatric Problem: No Integumentary History of Skin or Integumenta: No Blood Transfusions History of Blood Disorders: No Reviewed Nursing Assessment Reviewed/Agree w Nursing PMH: Yes Family Medical History Significant Family History: Heart Disease (MOM), Cancer (Father), Diabetes (Mother), Hypertension Review of Systems-General Constitutional: chills; No diaphoresis; malaise, weakness EENTM: No blurred vision, No double vision, No mouth pain, No mouth swelling, No epistaxis Respiratory: No cough, No dyspnea on exertion, No hemoptysis, No short of breath Cardiovascular: chest pain; No edema, No palpitations Gastrointestinal: abdominal pain; No jaundice, No melena; nausea; No vomiting Genitourinary: No dysuria, No frequency, No hematuria Musculoskeletal: joint pain, joint swelling, muscle pain, muscle stiffness Skin: No change in color, No change in hair/nails Psychiatric/Neurological: Denies Anxiety, Denies Depressed, Denies Seizure, Denies Tremors Other pt denies any abnormal bleeding or bruising and no heat or cold intolerance Physical Exam-General Problems Physical Exam Vital Signs Vital Signs - First Documented 08/08/18 02:30 Pulse Ox 96 Capillary Refill : Less Than 3 Seconds General Appearance: WD/WN, no apparent distress, obese Eyes: Bilateral Eye PERRL, Bilateral Eye EOMI HEENT: pharynx normal; No scleral icterus (R), No scleral icterus (L) Neck: non-tender, full range of motion, supple, normal inspection Respiratory: chest non-tender, lungs clear, normal breath sounds, no respiratory distress, no accessory muscle use Cardiovascular: regular rate, rhythm, no murmur Gastrointestinal: normal bowel sounds, soft, no organomegaly, no pulsatile mass, tenderness (midepigastric and RUQ) Back: no CVA tenderness, no vertebral tenderness Extremities: normal range of motion, non-tender, normal inspection, no pedal edema, no calf tenderness Neurologic/Psychiatric: art education professor II-XII nml as tested, no motor/sensory deficits, alert, normal mood/affect, oriented x 3 Skin: normal color, warm/dry Lymphatic: no adenopathy (neck, axilla or groin) Data Review Labs Laboratory Tests 08/08/18 00:20: White Blood Count 13.7H, Red Blood Count 5.17, Hemoglobin 13.7, Hematocrit 42, Mean Corpuscular Volume 82, Mean Corpuscular Hemoglobin 27, Mean Corpuscular Hemoglobin Concent 33, Red Cell Distribution Width 15.2H, Platelet Count 325, Mean Platelet Volume 9.8, Neutrophils (%) (Auto) 62, Lymphocytes (%) (Auto) 28, Monocytes (%) (Auto) 8, Eosinophils (%) (Auto) 2, Basophils (%) (Auto) 0, Neutrophils # (Auto) 8.5H, Lymphocytes # (Auto) 3.9, Monocytes # (Auto) 1.0, Eosinophils # (Auto) 0.3, Basophils # (Auto) 0.0, Prothrombin Time 13.0, INR Comment 0.9, Activated Partial Thromboplast Time 32, Sodium Level 143, Potassium Level 3.9, Chloride Level 104, Carbon Dioxide Level 24, Anion Gap 15H, Blood Urea Nitrogen 19H, Creatinine 0.88, Estimat Glomerular Filtration Rate > 60, BUN/Creatinine Ratio 22, Glucose Level 138H, Calcium Level 10.5H, Corrected Calcium , Magnesium Level 2.2, Total Bilirubin 0.4, Aspartate Amino Transf (AST/ SGOT) 23, Alanine Aminotransferase (ALT/SGPT) 39, Alkaline Phosphatase 78, Myoglobin 33.3, Troponin I < 0.028, B-Type Natriuretic Peptide 20.1, Total Protein 7.8, Albumin 4.6H, Amylase Level 68, Lipase 36 08/08/18 06:07: White Blood Count 15.8H, Red Blood Count 4.82, Hemoglobin 13.0, Hematocrit 40, Mean Corpuscular Volume 82, Mean Corpuscular Hemoglobin 27, Mean Corpuscular Hemoglobin Concent 33, Red Cell Distribution Width 15.1H, Platelet Count 306, Mean Platelet Volume 9.7, Neutrophils (%) (Auto) 82H, Lymphocytes (%) (Auto) 11L , Monocytes (%) (Auto) 7, Eosinophils (%) (Auto) 0, Basophils (%) (Auto) 0, Neutrophils # (Auto) 12.9H, Lymphocytes # (Auto) 1.8, Monocytes # (Auto) 1.1H, Eosinophils # (Auto) 0.0, Basophils # (Auto) 0.0, Sodium Level 140, Potassium Level 4.4, Chloride Level 106, Carbon Dioxide Level 23, Anion Gap 11, Blood Urea Nitrogen 17, Creatinine 0.80, Estimat Glomerular Filtration Rate > 60, BUN/Creatinine Ratio 21, Glucose Level 173H, Calcium Level 9.4, Corrected Calcium 9.4, Total Bilirubin 0.5, Aspartate Amino Transf (AST/SGOT) 26, Alanine Aminotransferase (ALT/SGPT) 41, Alkaline Phosphatase 69, Troponin I < 0.028, Total Protein 6.7, Albumin 4.0, Triglycerides Level 53, Cholesterol Level 135, LDL Cholesterol Direct 76, VLDL Cholesterol 11, HDL Cholesterol 48 Assessment/Plan Assessment/Plan Assessment/Plan Acute Cholecystitis with Cholelithias, probably on top of Chronic DM HTN Plan is NPO, IV fluids, pain control, anti-emetics and to OR for Laparoscopic Cholecystectomy possible cholangiogram, possible open. Will give ABX just prior to OR. Discussed the surgery in detail with pt, going over risks and complications not limited to pain, bleeding, infection, scar, damage to bowel or bile ducts and need for further procedure. All questions answered to her satisfaction. Clinical Quality Measures AMI/AHF: ASA po Prior to arrival: Yes (TOOK 2 CHEWABLE AT HOME) DVT/VTE Risk/Contraindication: Risk Factor Score Per Nursin RFS Level Per Nursing on Admit: 3=High ADARSH JEAN BAPTISTE DO Aug 08, 2018 10:22
--- NOTE | 2018-08-08 10:25 | NUR ---
OR STAFF HERE TO TAKE PT TO OR. PT TO GO TO ROOM 408 AFTER SURGERY. REPORT CALLED TO DARRION REYNOSO WHO WILL ASSUME CARE OF PT POSTOP. NO QUESTIONS/CONCERNS VOICED.
[2018-08-08] MEDS ORDERED: ATOR20TA66 PO (10:34)
[2018-08-08] MEDS ORDERED: GLIM4TAB PO (10:34)
[2018-08-08] MEDS ORDERED: LISI-552 PO (10:34)
[2018-08-08] MEDS ORDERED: LACTATED RINGERS 1,000 ML IV SCH (10:45)
[2018-08-08] MEDS ORDERED: ceFAZolin INJECTION 2,000 MG ONE (11:02)
[2018-08-08] MEDS ORDERED: ceFAZolin 2 GM/50 ML NS 50 ML IV ONE (11:15)
[2018-08-08] MEDS ORDERED: LACTATED RINGERS 1,000 ML IV PRN (11:24)
[2018-08-08] MEDS ORDERED: proPOfol 200 MG/20 ML (DIPRIVAN) VIAL IV ONE (11:53)
[2018-08-08] MEDS ORDERED: LIDOCAINE PF 2% 5 ML (XYLOCAINE) VIAL ONE (11:53)
[2018-08-08] MEDS ORDERED: SEVOFLURANE (ULTANE) 15 ML INHAL SOLN ONE (11:53)
[2018-08-08] MEDS ORDERED: NEOSTIGMINE 1 MG/ML 5 ML SYRINGE ONE (11:53)
[2018-08-08] MEDS ORDERED: GLYCOPYRROLATE 0.2 MG/ML (ROBINUL) 2 ML VIAL ONE (11:53)
[2018-08-08] MEDS ORDERED: ROCURONIUM 10 MG/ML 5 ML SYRINGE IV ONE (11:54)
--- NOTE | 2018-08-08 11:57 | Progress Note-Post Operative ---
Post-Operative Progess Note Surgeon (s)/Subsorter (s) Surgeon ADARSH JEAN BAPTISTE DO Subsorter: Ashley Pre-Operative Diagnosis Acute Cholecystitis with Cholelithiasis, DM, HTN Post-Operative Diagnosis Same Procedure & Operative Findings Date of Procedure 08/08/18 Procedure Performed/Findings Lap brian with IOC Anesthesia Type GET Estimated Blood Loss Estimated blood loss (mL): scant Specimens/Packing Specimens Removed GB and contents ADARSH JEAN BAPTISTE DO Aug 08, 2018 11:57
[2018-08-08] MEDS ORDERED: ACHD5005 PO (11:59)
--- NOTE | 2018-08-08 12:00 | Discharge Inst-Surgical ---
Discharge Inst-Surgical Depart Medication/Instructions New, Converted or Re-Newed RX: RX Given to Pt/Family Patient Instructions Follow up Appt: Make appointment for 1 week. [phone] Instructions: No lifting greater than 20 pounds. No strenuous activity. May shower in 24 hours, no tub bath or soaking. Use incentive spirometer at home as directed. No Smoking Skin/Wound Care: May remove bandages in am. You need to leave the Dermabond on incision it will fall off on it's own. Symptoms to Report: Appetite Changes, Extremity Discoloration, Numbness/Tingling, Swelling Increased, Bleeding Excessive, Eyesight Changes, Pain Increased, Urine Color Change, Constipation(Persistent), Fever over 101 degree F, Pain/Pressure in chest, Urinating Difficulty, Cough Up/Vomit Blood, Heart Beat Irreg/Pounding, Pain/Pressure in jaw, Cramps in feet or legs, Lightheadedness, Pain/Pressure in shoulder, Diarrhea(Persistent), Memory Changes Suddenly, Questions/Concerns, Weight gain consecutive days, Dizziness/Fainting, Nausea/Vomiting, Shortness of Breath, Weight gain over 2 pounds If questions or concerns contact your physician Or seek help at emergency department. Activity Activity as Tolerated: Yes Activity Instructions: Avoid Stress to Incision Driving Instructions: No Driving/Refer to Diet Discharge Diet: Avoid Fatty Foods, Low Fat/Low Cholesterol Diet After 24 Hours: Clear Liquid if Nauseous If Any Problems/Questions/Issu: Contact Your Physician, Go to Emergency Room Skin/Wound Care Infection Signs and Symptoms: Increased Redness, Foul Odor of Wound, Increased Drainage, Skin Itchy or Has a Rash, Increased Swelling, Temperature Above 101 F Wound Care Comment: heating pad to shoulder or neck tonight for pain Bathing Instructions: Shower Stitches/Jasper/Dermabond Dis: Dermabond Ice Pack: Ice On and Off Site (as needed for pain at incisions) ADARSH JEAN BAPTISTE DO Aug 08, 2018 12:00
--- NOTE | 2018-08-08 12:30 | Diagnostic Imaging Report ---
INDICATION: Fluoroscopy during intraoperative cholangiogram. FINDINGS: Fluoroscopy was provided for Dr. Mohr during intraoperative cholangiogram. 30 seconds of fluoroscopy was utilized. Images demonstrate contrast being injected via the cystic duct remnant. The hepatic bile duct is unremarkable. There is flow of contrast into the duodenum. The intrahepatic ducts are not opacified. No filling defects in the common duct are identified. IMPRESSION: Fluoroscopy during intraoperative cholangiogram. Dictated by: Dictated on workstation # [id number]
--- NOTE | 2018-08-08 13:00 | NUR ---
RECEIVED FROM RECOVERY, ALERT, ON ROOM AIR, SAT 95 PERCENT, ABD SOFT, ICE PACK TO ABD, 4 LAP SITES WITHOUT REDNESS OR DRAINAGE, IV SITE WITHOUT REDNESS OR SWELLING, FAMILY AT BEDSIDE, CALL MALIK WITHIN REACH, DENIES PAIN AT THIS TIME.
[2018-08-08] MEDS ORDERED: HYDROcodone/APAP 5 MG/325 MG (LORTAB) TAB PO NR (13:45)
--- NOTE | 2018-08-08 14:30 | NUR ---
WALKED IN [place], ZORAN WELL, VOIDED WITHOUT DIFFICULTY, ZORAN CLEAR LIQUID DIET WELL.
--- NOTE | 2018-08-08 14:53 | NUR ---
PATIENT WAS OUT OF ROOM THIS MORNING FOR PROCEDURE WHEN I WENT TO COMPLETE MED REC, I ADDED A FEW MEDICATIONS THAT HAVE BEEN RECENTLY FILLED ACCORDING TO THE EXT MED HX. WHEN I WENT BACK THIS AFTERNOON TO COMPLETE THE MED REC THE DISCHARGE HAD BEEN FINALIZED SO I WAS UNABLE TO SPEAK WITH THE PATIENT AND UPDATE THE MED REC
--- NOTE | 2018-08-08 16:00 | NUR ---
DISCHARGE INSTRUCTIONS GIVEN, VERBALIZED UNDERSTANDING, RT HERE TO TEACH ABOUT INCENTIVE SPIROMETRY
--- NOTE | 2018-08-08 16:29 | NUR ---
YASIR NAVA demonstrates understanding of discharge instructions and accurately returns instructions upon questioning. Copy of Post-Discharge Instructions and Medication Discharge Instructions given to PATIENT. YASIR NAVA is able to manage continuing needs after discharge. Patients belongings returned to PATIENT. Skin dry and intact; no breakdown noted. Patient discharged from [facility] on 08/08/18 at 1625 . YASIR NAVA left floor via W/C, accompanied by STAFF AND FAMILY.
--- NOTE | 2018-08-08 17:25 | OPERATIVE REPORT ---
DATE OF SERVICE: PREOPERATIVE DIAGNOSIS: Acute cholecystitis, cholelithiasis. POSTOPERATIVE DIAGNOSIS: Acute cholecystitis, cholelithiasis. PROCEDURE: Laparoscopic cholecystectomy, intraoperative cholangiogram. SURGEON: Marciano Mohr DO REFINING MACHINE OPERATOR: Dr. Ramirez. ANESTHESIA: General endotracheal tube. SPECIMEN: Gallbladder and contents. BLOOD LOSS: Scant. FLUIDS: Per anesthesia. POSTOPERATIVE CONDITION: Stable. INDICATION FOR PROCEDURE: The patient is a 63-year-old female who began having some epigastric possibly chest pain, came in, worked up for cardiac problems, but turned out to be gallbladder. FINDINGS: The patient had acute cholecystitis with cholelithiasis, had adhesions to the gallbladder, which is indicative of gallbladder attacks and her gallbladder was thickened and edematous. PROCEDURE NOTE: After informed consent was obtained, the patient was brought to the operating room, placed on the table in supine position, sterilely prepped and draped in normal fashion. Local lidocaine was used to infiltrate the skin above the umbilicus. Made an incision with #11 blade, carried down through the skin and subcutaneous tissue, deepened down to subcutaneous tissue with Bovie electrocautery down to the fascia. Fascia incised with Bovie electrocautery and bluntly entered the abdomen, swept a finger around, placed 0 Vicryl [id number] suture, then placed 11 mm trocar port under direct visualization, created pneumoperitoneum and then placed 3 more ports in normal fashion using local lidocaine, 11 blade for stab incision and Versed system, all under direct visualization, one subxiphoid and two in the right upper quadrant. The patient then placed slightly Trendelenburg and rotated to the left, able to grasp the gallbladder at the fundus, noted adhesions and the gallbladder looked edematous, started taking these adhesions down carefully with Bovie electrocautery as well as blunt dissection and then pushed the gallbladder in superior direction. Finally, able to get the adhesions out of the way and then grasped down to Soumya's pouch and pulled in inferolateral direction, started dissecting out cystic duct and cystic artery. Cystic artery actually came across in front of the gallbladder, so came across this first, getting around it with a [place] and then placing 1 clip distally to proximally and cut with Metzenbaum scissors. Then continued to dissect out the cystic duct. Cystic duct was very large, able to get around it, placed a clip distally and then cut in half with the Metzenbaum scissors. Shot cholangiogram and got good spillage of dye down the cystic duct into the common bile duct and into the small intestine, did go up into the common hepatic but did not go up, but just barely started to go up into the common hepatic. At this point, then removed the cholangiogram catheter, placed 2 clips proximally on the cystic duct and cut the cystic duct with Metzenbaum scissors and then started to removing the gallbladder from the liver with L-hook cautery. Once it was completely removed, placed a bag in the abdomen, placed the gallbladder in the bag and then removed this through the supraumbilical incision. Placed the port back in the abdomen, copiously irrigated with normal saline. There was no bleeding from the bed of liver, took a picture of clips. I then looked around, no other obvious pathology. At this point, placed the patient supine, suctioned out all the fluid and then removed all ports under direct visualization, allowed pneumoperitoneum to escape as well as suctioned out. Closed the supraumbilical incision, closing the fascia with 0 Vicryl suture previously placed. Copiously irrigated all incisions with normal saline. Closed the 3 small 5 mm incisions with single interrupted 4-0 undyed Monocryl subcuticular stitch. Closed the supraumbilical incision with 3 interrupted 4-0 undyed Monocryl subcuticular stitches. Area was cleaned and dried and Dermabond placed as well as Band-Aids. The patient was then transferred to recovery room in stable condition. Sponge, instrument and needle counts were correct at the end of the case. Dr. Ramirez assisted in this case helping to make incisions, closed incisions as well as identify anatomy and hold anatomy out of the way. Job ID: [id number] DocumentID: [id number] Dictated Date: 08/08/2018 12:50:58 Sales Enablement Consultant Date: 08/08/2018 17:25:22 Dictated By: DO ARON REEVES
--- NOTE | 2018-08-09 12:47 | Anesthesia-General Post-Op ---
General Patient Condition Mental Status/LOC: Same as Preop Cardiovascular: Satisfactory Nausea/Vomiting: Absent Respiratory: Satisfactory Pain: Controlled Complications: Absent Post Op Complications Complications None Follow Up Care/Instructions Patient Instructions None needed. Anesthesia/Patient Condition Patient Condition Patient is doing well, no complaints, stable vital signs, no apparent adverse anesthesia problems. No complications reported per nursing. DAVID MENDOZA CRNA Aug 09, 2018 12:47
== END 2018-08-08 16:25 | disposition home or self-care (01) ==
LOC: EDUNIT# 23:59 → ER 08-08 00:02 → ICU 08-08 01:20 → 4TH 08-08 13:00
PROVIDERS: ADMIT Family Medicine; ATTEND Family Medicine
DX: K80.12 Calculus of gallbladder with acute and chronic cholecystitis without obstruction (principal); I10 Essential (primary) hypertension; E78.5 Hyperlipidemia, unspecified; E11.9 Type 2 diabetes mellitus without complications; Z82.49 Family history of ischemic heart disease and other diseases of the circulatory system; Z79.82 Long term (current) use of aspirin; Z79.84 Long term (current) use of oral hypoglycemic drugs; Z79.899 Other long term (current) drug therapy; Z23 Encounter for immunization
CPT/HCPCS: 36415; 71045; 76700; 80053; 80061; 82150; 83690; 83735; 83874; 83880; 84484; 85025; 85610; 85730; 87081; 90471; 93005; 93041; 94664; 96361; 96374; 96375; 96376; G0378

== ENCOUNTER → 2019-08-29 | Outpatient (CLI) | payer MEDICARE, OTHER ==
[~2019-08-29] MED LIST changes: +ACHD5005 PO; +ATOR20TA66 PO; +GLIM4TAB5 PO; +LISI-552 PO
--- NOTE | 2019-08-30 09:42 | Diagnostic Imaging Report ---
INDICATION: Routine screening. COMPARISON is made with prior mammograms from 03/28/2018 and 11/22/2016. 2-D and 3-D bilateral screening mammography was performed with CAD. Scattered fibroglandular densities are identified bilaterally. No mass or malignant appearing microcalcifications are identified. Axillae are unremarkable. IMPRESSION: BI-RADS Category 1. No mammographic features suspicious for malignancy are identified. ACR BI-RADS Category 1: Negative. Result letter will be mailed to the patient. Note: At least 10% of breast cancer is not imaged by mammography. Dictated by: Dictated on workstation # [id number]
== END ==
LOC: RAD 14:51
PROVIDERS: ATTEND Nurse Practitioner Family
DX: Z12.31 Encounter for screening mammogram for malignant neoplasm of breast (principal)
CPT/HCPCS: 77063; 77067

== ENCOUNTER → 2020-03-25 | Outpatient (CLI) | payer MEDICARE, OTHER | LOC: CARD 08:30 | PROVIDERS: ATTEND Physician Assistant | DX: I34.0 Nonrheumatic mitral (valve) insufficiency (principal) | CPT/HCPCS: 93306 ==

== ENCOUNTER → 2020-03-26 | Outpatient (CLI) | payer MEDICARE, OTHER ==
[~2020-03-26] VITALS: Ht 157 cm; Wt 75.0 kg
[~2020-03-26] MED LIST changes: +CATHETER FLUSH 10 ML SYR IV PRN
[2020-03-26 09:43] VITALS: BP 136/63
--- NOTE | 2020-03-26 12:27 | Cardiology Stress Test Report ---
Stress Test Report Date of Procedure/Referring: Date of Procedure: Mar 26, 2020 Shirley Salazar Admitting Physician Florinda Arteaga MD Indications: Chest pain Baseline Heart Rate: 75 Baseline Blood Pressure: Blood Pressure Systolic: 136 Blood Pressure Diastolic: 63 Vital Signs Date Time Temp Pulse Resp B/P (MAP) Pulse Ox O2 Delivery O2 Flow Rate FiO2 03/26/20 09:43 71 136/63 (87) Baseline Vital Signs Vital Signs Date Time Temp Pulse Resp B/P (MAP) Pulse Ox O2 Delivery O2 Flow Rate FiO2 03/26/20 09:43 71 136/63 (87) Baseline EKG: Baseline EKG: normal sinus rhythm Summary: After explaining the procedure and details to the patient, she signed the consent and was brought to the stress nuclear laboratory. Patient exercised on standard Prasad protocol, EKG, heart rate and blood pressure were monitored continuously, resting and stress doses of radio tracer were injected, imaging was acquired and reviewed in the short axis, horizontal long axis and vertical long axis views Patient was able to exercise for a total of 3:45 minutes on Prasad protocol, METs 5.4 Maximum heart rate 139 Maximum blood pressure 183/60 Stress EKG, Minimal nondiagnostic changes Recovery EKG, Return to baseline TID: 0.96 SSS: 1 SDS: 1 EF: 75 Conclusion: 1. Fair exercise tolerance for total of 3 minutes 45 seconds on standard Prasad protocol, 5.4 METs achieving 90 percent of maximum expected heart rate 2. Hypertensive response to exercise with peak blood pressure 183/60 return to baseline during recovery 3. Minimal nondiagnostic EKG changes with exercise returned to baseline during recovery 4. No significant ischemia or infarction on SPECT images 5. Normal left ventricular size, EF 75 percent BOB LEVINE MD Mar 26, 2020 12:27
== END ==
LOC: CARD 08:30
PROVIDERS: ATTEND Physician Assistant
DX: R07.9 Chest pain, unspecified (principal)
CPT/HCPCS: 78452; 93017; A9502

== ENCOUNTER → 2020-09-16 | Outpatient (CLI) | payer MEDICARE, OTHER ==
[~2020-09-16] MED LIST changes: -CATHETER FLUSH 10 ML SYR IV PRN; -LISI-552 PO; +LISI20TA26 PO
--- NOTE | 2020-09-16 13:13 | Diagnostic Imaging Report ---
Indication: Routine screening. Comparison is made with prior mammogram 08/29/2019 and 03/28/2018. 2-D and 3-D bilateral screening mammography was performed with CAD. Scattered fibroglandular densities are identified bilaterally. The peripheral pattern is stable. No mass or malignant-appearing microcalcifications are seen. Axillae are unremarkable. IMPRESSION: BI-RADS Category 1 No mammographic features suspicious for malignancy are identified. ACR BI-RADS Category 1: Negative. Result letter will be mailed to the patient. Note: At least 10% of breast cancer is not imaged by mammography. Dictated by: Dictated on workstation # [id number]
== END ==
LOC: RAD 08:15
PROVIDERS: ATTEND Nurse Practitioner Family
DX: Z12.31 Encounter for screening mammogram for malignant neoplasm of breast (principal)
CPT/HCPCS: 77063; 77067

== ENCOUNTER 2021-04-06 06:36 | Outpatient (CLI) | payer MEDICARE ==
[~2021-04-06] VITALS: Ht 157.5 cm; Wt 80.5 kg
[2021-04-06] MEDS ORDERED: ZINC50TA11 PO (11:29)
[2021-04-06] MEDS ORDERED: NAPR-915 PO (11:29)
[2021-04-06] MEDS ORDERED: LACT1CAP74 PO (11:29)
[2021-04-06] MEDS ORDERED: MELA3CAP2 PO (11:29)
[2021-04-06] MEDS ORDERED: ASPI-1238 PO (11:29)
[2021-04-06] MEDS ORDERED: CETI10CA PO (11:29)
[2021-04-06] MEDS ORDERED: MULT-1136 PO (11:29)
[2021-04-06] MEDS ORDERED: ASCO-262 PO (11:29)
[2021-04-06] MEDS ORDERED: METF-397 PO (11:29)
[2021-04-06] MEDS ORDERED: MV-M1TAB20 PO (11:29)
== END 2021-04-06 12:50 | disposition home or self-care (01) ==
LOC: PREOP 06:36
PROVIDERS: ATTEND Surgery
DX: Z01.818 Encounter for other preprocedural examination (principal)

== ENCOUNTER 2021-04-13 07:33 | Day surgery (SDC) | payer MEDICARE ==
[~2021-04-13] VITALS: Ht 157.5 cm; Wt 80.5 kg
[~2021-04-13 07:33] MED LIST changes: +ASCO-262 PO; +ASPI-1238 PO; +CETI10CA PO; +LACT1CAP74 PO; +MELA3CAP2 PO; +METF-397 PO; +MULT-1136 PO; +MV-M1TAB20 PO; +NAPR-915 PO; +ZINC50TA11 PO
[2021-04-13] MEDS ORDERED: LACTATED RINGERS 1,000 ML IV ONE (07:38)
[2021-04-13] MEDS ORDERED: LACTATED RINGERS 1,000 ML IV STA (07:41)
[2021-04-13] MEDS ORDERED: PROPOFOL INJECTION 50 ML IV ONE (07:49)
[2021-04-13 07:50] VITALS: BP 114/67
--- NOTE | 2021-04-13 08:22 | Progress Note-Pre Operative ---
Pre-Operative Progress Note H&P Reviewed The H&P was reviewed, patient examined and no changes noted. Time Seen by Provider: 08:16 Date H&P Reviewed: Apr 13, 2021 Time H&P Reviewed: 08:16 Pre-Operative Diagnosis: DAARSH Camacho DO Apr 13, 2021 08:22
[2021-04-13 09:45] VITALS: BP 111/53
--- NOTE | 2021-04-13 09:47 | Progress Note-Post Operative ---
Post-Operative Progess Note Surgeon (s)/Nylon Machine Operator (s) Surgeon ADARSH JEAN BAPTISTE DO Nylon Machine Operator: AUBRIE Worrell Pre-Operative Diagnosis Screening Post-Operative Diagnosis Polyp Diverticula int hemorrhoids Procedure & Operative Findings Date of Procedure 04/13/21 Procedure Performed/Findings Colon with snare polypectomy PROCEDURE NOTE: After informed consent was obtained, the patient was brought to the endoscopy suite, placed in bed in left lateral decubitus position. She was administered IV sedation by the EYEGLASS INSPECTOR who then monitored her vitals the entire time, heart rate, blood pressure and pulse ox and the scope was inserted, pushed all the way to about 130 cm and pushed into the cecum. Just outside the cecum I found a larger flat polyp, able to remove it in 2 pieces with the snare. I then took a picture of the appendiceal orifice and noted the ileocecal valve. I then started slowly withdrawing the scope insufflating to look circumferentially at the whitney starting in the cecum, up the ascending colon to the hepatic flexure, then down the transverse colon, splenic flexure, into the descending colon down. Through here I saw a few small diverticula and then continued into the sigmoid and finally into the rectal vault. I retroflexed the scope and took a picture of the internal hemorrhoids. The patient tolerated the procedure. She was recovered in endoscopy suite. Anesthesia Type IV sedation by EYEGLASS INSPECTOR Estimated Blood Loss Estimated blood loss (mL): scant Specimens/Packing Specimens Removed asc colon polyp ADARSH JEAN BAPTISTE DO Apr 13, 2021 09:47
--- NOTE | 2021-04-13 09:49 | Endoscopy Discharge Instruct ---
Endo Procedure/Findings Findings 1.: Polyp 2.: Diverticulosis 3.: Internal Hemorrhoids Discharge Instructions - Activity: You might feel a little sleepy until tomorrow. This is due to the medicine you received to relax you. Until tomorrow, you should: NOT drive a car, operate machinery or power tools. NOT drink any alcoholic beverages. NOT make any important decisions or sign importortant papers. Do not return to work until tomorrow, unless otherwise instructed. Resume previous activities tomorrow. Diet: Start by taking liquids. If you tolerate liquids, advance to solid food. 1.: Colonscopy in 3 years Notify Physician - If you experience excessive bleeding, unusual abdominal pain, fever, or chest pain, contact your doctor immediately. ADARSH JEAN BAPTISTE DO Apr 13, 2021 09:49
[2021-04-13 09:50] VITALS: BP_SYST 119; BP_SYST 90; BP_DIAS 53; BP_DIAS 56
--- NOTE | 2021-04-13 12:32 | Anesthesia-General Post-Op ---
MAC Patient Condition Mental Status/LOC: Same as Preop Cardiovascular: Satisfactory Nausea/Vomiting: Absent Respiratory: Satisfactory Pain: Controlled Complications: Absent Post Op Complications Complications None Follow Up Care/Instructions Patient Instructions None needed. Anesthesiology Discharge Order Discharge Order Patient is doing well, no complaints, stable vital signs, no apparent adverse anesthesia problems. No complications reported per nursing. EDVIN HERNANDEZ CRNA Apr 13, 2021 12:32
== END 2021-04-13 10:17 | disposition home or self-care (01) ==
LOC: ENDO 07:33
PROVIDERS: ATTEND Surgery
DX: Z12.11 Encounter for screening for malignant neoplasm of colon (principal); K63.5 Polyp of colon; K57.30 Diverticulosis of large intestine without perforation or abscess without bleeding; K64.8 Other hemorrhoids; E11.9 Type 2 diabetes mellitus without complications; I10 Essential (primary) hypertension; E78.2 Mixed hyperlipidemia; Z79.84 Long term (current) use of oral hypoglycemic drugs; Z79.82 Long term (current) use of aspirin; Z79.899 Other long term (current) drug therapy
CPT/HCPCS: 88305

== ENCOUNTER → 2021-09-21 | Outpatient (CLI) | payer MEDICARE ==
--- NOTE | 2021-09-21 14:13 | Diagnostic Imaging Report ---
Indication: Routine screening. Comparison is made with prior mammograph 09/16/2020 and 08/29/2019. 2-D and 3-D bilateral screening mammography was performed with CAD. CAD is utilized. The current study was also evaluated with a Computer Aided Detection (CAD) system. Scattered fibroglandular densities are identified bilaterally. Both breast appears stable. No mass or malignant-appearing microcalcifications are seen. Axillae are unremarkable. IMPRESSION: BI-RADS Category 1 No mammographic features suspicious for malignancy are identified. ACR BI-RADS Category 1: Negative. Result letter will be mailed to the patient. Note: At least 10% of breast cancer is not imaged by mammography. Dictated by: Dictated on workstation # [id number]
== END ==
LOC: RAD 09:15
PROVIDERS: ATTEND Nurse Practitioner Family
DX: Z12.31 Encounter for screening mammogram for malignant neoplasm of breast (principal)
CPT/HCPCS: 77063; 77067

== ENCOUNTER → 2023-01-21 | Outpatient (CLI) | payer MEDICARE ==
--- NOTE | 2023-01-21 11:17 | Diagnostic Imaging Report ---
INDICATION: Routine screening. Comparison is made with prior mammogram from 03/12/2021 and 09/16/2020. 2-D and 3-D bilateral screening mammography was performed with CAD. Scattered fibroglandular densities are identified bilaterally. The parenchymal pattern is stable. No mass or malignant-appearing microcalcifications are identified. Axillae are unremarkable. IMPRESSION: No mammographic features suspicious for malignancy are identified. ACR BI-RADS Category 1: Negative. Result letter will be mailed to the patient. Note: At least 10% of breast cancer is not imaged by mammography. BI-RADS Category 1 Dictated by: Dictated on workstation # [id number]
== END ==
LOC: RAD 09:08
PROVIDERS: ATTEND Physician Assistant
DX: Z12.31 Encounter for screening mammogram for malignant neoplasm of breast (principal)
CPT/HCPCS: 77063; 77067